=== PATIENT | male | born 1965 | race Caucasian/White ===

== ENCOUNTER 2017-08-01 10:49 | Emergency (ER) | payer BC ==
[~2017-08-01] VITALS: Ht 190.5 cm; Wt 109.2 kg
[2017-08-01 11:00] VITALS: BP 110/77; PULSE 102; RESP 16; TEMP 97.9; O2SAT 96
[2017-08-01] MEDS ORDERED: ONGL5TAB PO (11:09)
[2017-08-01] MEDS ORDERED: CELE200C PO (11:09)
[2017-08-01] MEDS ORDERED: CYCL1TAB29 PO (11:09)
[2017-08-01] MEDS ORDERED: RAMI10CA PO (11:09)
[2017-08-01] MEDS ORDERED: potassium (11:09)
[2017-08-01] MEDS ORDERED: HYDR-3534 PO (11:09)
--- NOTE | 2017-08-01 11:21 | PD ---
HPI Chief Complaint: Musculoskeletal Complaint Time Seen by Provider: 11:09 Travel History International Travel<30 days: No Contact w/Intl Traveler<30days: No Traveled to known affect area: No History of Present Illness HPI 52-year-old right-handed male presents to the emergency room for evaluation of right third and fourth finger pain and swelling after injuring it yesterday. Patient jumped up onto a swimming platform and states his third and fourth fingers bent backwards at which time he heard a pop. Since then he has had pain localized to the third MCP joint on the dorsal side. Pain is worsened with any range of motion, especially extension of the hand. He took Flexeril yesterday with moderate relief in symptoms. He did not apply ice or taken anything today. He tried to get into his primary care physician but they are closed because of [place]. Patient denies paresthesias. PFSH Past Medical History Diabetes: Yes Patient Takes Glucophage: No Diminished Hearing: No Hypertension: Yes Tetanus Vaccination: Unknown Influenza Vaccination: No ?: Not Past Surgical History Neurologic Surgery: Yes (Discectomy L2-L3-L4) Other Surgery: Yes (ventral hernia repair) Social History Alcohol Use: Yes (socially) Tobacco Use: No Substance Use: No Allergies-Medications (Allergen,Severity, Reaction): Coded Allergies: No Known Allergies (Unverified , 08/01/17) Reported Meds & Prescriptions Reported Meds & Active Scripts Active Reported [potassium] Celebrex (Celecoxib) 200 Mg Cap 200 Mg PO BID Flexeril (Cyclobenzaprine HCl) 10 Mg Tab 10 Mg PO TID Lortab (Hydrocodone-Acetaminophen) 7.5-325 Mg Tab 1 Tab PO Q6H PRN Onglyza (Saxagliptin) 5 Mg Tab 5 Mg PO DAILY Ramipril 10 Mg Cap 10 Mg PO DAILY Review of Systems Except as stated in HPI: all other systems reviewed are Neg Physical Exam Narrative GENERAL: Well-nourished, well-developed male in no acute distress. Afebrile. Ambulatory. SKIN: Focused skin assessment warm/dry. Mild ecchymosis over the right second and third proximal fingers. HEAD: Normocephalic. EYES: No scleral icterus. No injection or drainage. NECK: Supple, trachea midline. No JVD or lymphadenopathy. CARDIOVASCULAR: Regular rate and rhythm without murmurs, gallops, or rubs. RESPIRATORY: Breath sounds equal bilaterally. No accessory muscle use. MUSCULOSKELETAL: No cyanosis. Mild edema of the right hand. Less than 2 second capillary refill distally. Full flexion of the right hand. Limited extension of the third and fourth fingers. Pain with passive extension of the third and fourth fingers. No bony tenderness to palpation. Data Data Last Documented VS Vital Signs Date Time Temp Pulse Resp B/P (MAP) Pulse Ox O2 Delivery O2 Flow Rate FiO2 08/01/17 11:00 97.9 102 16 110/77 (88) 96 Orders Orders Hand, Complete ([id number]) (08/01/17 ) [facility] Medical Decision Making Medical Screen Exam Complete: Yes Emergency Medical Condition: Yes Medical Record Reviewed: Yes Differential Diagnosis Tendon rupture, muscle spasm, fracture, sprain, strain Narrative Course 52-year-old right-handed male presents to the emergency room for evaluation of pain and swelling to the right third and fourth fingers after injuring them yesterday. Patient bent them on the way backwards and since then has had pain with extension. Denies paresthesias. Physical exam reveals mild edema of the third and fourth fingers and tenderness to palpation especially between the third and fourth MCP joint. He has full flexion but could not hyperextend his fingers. X-rays negative for acute bony abnormality. Patient likely has tendon injury from a per extending the fingers. He was placed in a well-padded volar splint in the position of function with his fingers extended. Patient told to follow up with a hand surgeon this week if possible or return for worsening symptoms. He understands and agrees to plan. Diagnosis Primary Impression: Injury of tendon of right hand Qualified Codes: S66.901A - Unspecified injury of unspecified muscle, fascia and tendon at wrist and hand level, right hand, initial encounter Referrals: Hand Surgeon Additional Instructions: Rest and drink plenty of fluids. Keep splint on until follow-up. Take Lortab as directed, as needed for pain. Do not drink alcohol or drive while taking this medication. Apply ice to the affected area for 20 minutes at a time, as needed for pain and swelling. Follow-up with a primary care physician. Return to the emergency room for worsening symptoms. Med/Other Pt SpecificInfo: Prescription(s) given Disposition: 01 DISCHARGE HOME Condition: Stable Ashley Rosario Aug 01, 2017 11:21
--- NOTE | 2017-08-01 11:45 | RADRPT ---
EXAM DATE/TIME: 08/01/2017 11:16 [facility] COMPARISON: No previous studies available for comparison. INDICATIONS : Right hand pain after fall. MEDICAL HISTORY : Several previous right hand fractures SURGICAL HISTORY : None. ENCOUNTER: Initial ACUITY: 1 day PAIN SCORE: 5/10 LOCATION: Right 3rd,4th,and 5th MCPJ FINDINGS: No acute fracture is seen. There degenerative changes in the metacarpal phalangeal joint of the thumb. Alignment is anatomic. CONCLUSION: 1. No acute fracture identified. Lewis Villalba MD on August 01, 2017 at 11:41 Board Certified Radiologist. This report was verified electronically.
[2017-08-01] MEDS ORDERED: HYDR-3533 PO (11:54)
== END 2017-08-01 13:08 | disposition home or self-care (01) ==
LOC: PHEFT 10:49
DX: S66.901A Unspecified injury of unspecified muscle, fascia and tendon at wrist and hand level, right hand, initial encounter (principal); E11.9 Type 2 diabetes mellitus without complications; I10 Essential (primary) hypertension; Z79.84 Long term (current) use of oral hypoglycemic drugs; X58.XXXA Exposure to other specified factors, initial encounter
CPT/HCPCS: 73130; 99283